=== PATIENT | female | born 1945 | race Caucasian/White ===

== ENCOUNTER → 2017-05-20 07:08 | Outpatient (CLI) | payer MEDICARE, SELFPAY ==
--- NOTE | 2017-05-20 07:16 | CT_ITS ---
STUDY: CT CHEST WITHOUT CONTRAST REASON FOR EXAM: Female, 72 years old. Pneumonia. Prior left mastectomy with chemotherapy and radiation therapy. RADIATION DOSAGE (If Supplied By Facility): CTDIvol = ( 15.76 ) mGy, DLP = ( 547.40 ) mGycm TECHNIQUE: Transaxial imaging was performed without the administration of intravenous contrast material. Multiplanar coronal and sagittal images were reformatted. Individualized dose optimization techniques were used for this CT. COMPARISON: Comparison is made with prior chest radiograph dated February 07, 2016. FINDINGS: The patient is status post left mastectomy. Left breast prosthesis. There is a 1.7 cm x 1.4 cm x 1.2 cm irregular inhomogeneous density along the anterior apical portion of the left lung. This most likely represents post radiation scarring. Subpleural blebs are seen anteriorly. There is also evidence of increased markings in the anterior aspect of the lingular segment of the left upper lobe most likely secondary to prior radiation therapy. Mild increased markings are seen in the left lower lobe. This may represent atelectasis and/or scarring. There is an 8.6 mm x 7.2 mm partially calcified nodule in the superior segment of the right lower lobe. This may represent a calcifying fibroadenoma. This is seen on axial image #64. There is no demonstrated pleural abnormality. Mild degree of anterior pericardial thickening. There are multiple small lymph nodes within the mediastinum, which are normal in size and morphology most compatible with reactive lymph hyperplasia. Normal hilar regions. Normal unenhanced pulmonary arteries. Normal aorta arch and descending thoracic aorta. There are multi-level degenerative changes of the thoracic spine. There is no demonstrated abnormality of the visualized upper abdomen. CT/Chest without Contrast IMPRESSION: Inhomogeneous changes seen in the left pulmonary apex suggestive of post radiation scarring. Mild increased markings are also seen in the anterior aspect of the lingula somewhat of the left upper lobe as well as in the left lower lobe. This may all be related to postradiation scarring. Subcentimeter partially calcified nodule in the superior segment of the right lower lobe most likely secondary to a calcifying fibroadenoma. Electronically Signed: Lonny Naidu MD at 12:46 EST Tel [phone], Service support ,
== END ==
PROVIDERS: Family Provider Internal Medicine; PCP Internal Medicine; Visit Provider Internal Medicine Critical Care Medicine
DX: R91.8 Other nonspecific abnormal finding of lung field (principal)
CPT/HCPCS: 71250

== ENCOUNTER 2017-07-15 08:42 | Day surgery (SDC) | payer MEDICARE, SELFPAY ==
--- NOTE | 2017-07-10 14:57 | EKG12_ITS ---
Test Reason : PREOP Blood Pressure : / mmHG Vent. Rate : 066 BPM Atrial Rate : 066 BPM P-R Int : 142 ms QRS Dur : 082 ms QT Int : 386 ms P-R-T Axes : 021 -14 025 degrees QTc Int : 404 ms Normal sinus rhythm Low voltage QRS Borderline ECG Confirmed by WASHINGTON SLATER ([id number]), state editor SAIRA FISHER ([id number]) on 07/11/2017 2:13:36 PM Referred By: Reji Alba Confirmed By:WASHINGTON SLATER
[2017-07-10 16:16] LABS: Hematocrit 37.9 % (37-47); Hemoglobin 12.6 g/dl (12.0-15.0); Mean Corp Hgb Conc 33.2 g/gl (32-36); Mean Corpuscular Hgb 31.3 pg (27.0-32.0); Mean Corpuscular Volume 94.3 fL (81-99); Mean Platelet Vol. 10.1 fl (6.2-12.0); Platelet Count 312 K/mm3 (150-450); RBC Distribution Width CV 14.2 % (11.6-14.6); RBC Distribution Width SD 46.3 fl (35.1-43.9); Red Blood Count 4.02 M/mm3 (4.2-5.4); Scan Indicated on CBC? Y/N NO; White Blood Count 7.3 K/mm3 (4.4-11.0)
[2017-07-10 16:18] LABS: International Normalized Ratio 0.9; Prothrombin Time (Protime)PT. 12.3 SECONDS (11.7-14.9)
[2017-07-10 16:19] LABS: Partial Thromboplast Time 24.9 Seconds (24.1-36.2)
[2017-07-10 16:23] LABS: Hemoglobin A1c 7.1 % (4.2-6.3)
[2017-07-10 16:31] LABS: ALB/GLOB Ratio 1.2 RATIO (0.9-2.4); AST(SGOT) 13 U/L (15-37); Alanine Aminotransfer ALT/SGPT 36 U/L (13-56); Alkaline Phosphatase 69 U/L (45-117); Anion Gap 8 (5-15); BUN 19 mg/dL (7-18); BUN/Creat Ratio 22.7 RATIO (10-20); Calcium,Total 9.4 mg/dL (8.5-10.1); Chloride 104 mmol/L (98-107); Creatinine, Serum 0.84 mg/dL (0.55-1.02); EST Glomerular Filtration Rate 71 mL/min (>60); Est Glom Filt Rate - Afr Amer 86 mL/min (>60); Globulin 3.4 g/dL (2.2-4.2); Glucose 114 mg/dL (74-106); Potassium 4.2 mmol/L (3.5-5.1); Protein, Total 7.4 g/dL (6.4-8.2); Sodium Level 143 mmol/L (136-145); Thyroid Stim Hormone (TSH) 0.86 uIU/mL (0.358-3.74)
--- NOTE | 2017-07-14 13:18 | PCM.HP.BLA ---
History and Physical Date of Admission: 07/15/17 Surgical History and Physical Kaitlyn Saha, a 72 year old female 2 0 1 0 2, presents for AP Repair on July 15, 2017 at 10:00. -- Bladder Prolapse; Vaginal Pressure -- Reports having periodic pressure and urge incontinence mainly in the am upon rising from bed. She had a prior hyst. She states she looked down into a mirror and there appeared to be something coming out of her vaginal canal. Prolapse which began May. Kaitlyn claims it started sudden and has been present weeks. It is located in the vagina. Severity is nagging; Associated signs and symptoms are itching, cramping. MEDICATIONS HISTORY: Current medications prescribed by our practice are: 1. Estrace 0.01% (0.1 mg/gram) vaginal cream, one half gram per vagina twice weekly at Patient is also takin. Bypap machine, nightly 2. Vitamin D3 1,000 unit capsule, One pill by mouth once a day 3. levothyroxine 50 mcg capsule, One pill by mouth once a day 4. metformin 500 mg tablet, One pill by mouth once a day 5. Flonase Allergy Relief 50 mcg/actuation nasal spray,suspension, 2 puffs daily 6. letrozole 2.5 mg tablet, daily 7. venlafaxine ER 75 mg capsule,extended release 24 hr, daily ALLERGIES: Sulfonamides, Facial edema, Sulfa (Sulfonamide Antibiotics), Edema and generalized Infections - none Illnesses - allergies, mvp,hypoglycemia and pancreatitis Accidents - no injuries of consequence Hospitalizations - see surgery Review of Systems: GENERAL - Denies fever, or chills SKIN - Denies skin changes EYES - Denies visual changes EARS - Denies difficulty hearing NOSE - Denies nasal congestion or bleeding MOUTH - Denies sore throat or difficulty swallowing NECK - Denies pain or swelling RESPIRATORY - Denies shortness of breath or wheezing CARDIOVASCULAR - Denies palpitations or chest pain GASTROINTESTINAL - Denies nausea, vomiting, diarrhea, constipation GENITOURINARY - Denies dysuria, frequency of urination, incontinence of urine MUSCULOSKELETAL - Denies joint or muscle pain NEUROLOGICAL - Denies localized numbness or weakness PSYCHIATRIC - Denies depression or anxiety ENDOCRINE - Denies heat or cold intolerance, weight loss or gain HEMATO-IMMUNOLOGIC - Denies excessive bleeding with cuts SOCIAL HISTORY: Alcohol Use - denies drinking Smoking - used to smoke but quit Diet - balanced Diet Lifestyle - moderate stress lifestyle and Exercise - active Seat Belt Use - always 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 Brother: hip replacement, Colon Cancer and Heart Disease. Sister: colonoscopy with polyps. MENSTRUAL HISTORY: LMP Known?- Prior Hysterectomy PAST PREGNANCIES: Total Pregnancies - 3; Full Term Pregnancies - 2; Premature - 0; Abortions, Induced - 0; Abortions, Spontaneous - 1; Ectopics - 0; Multiple Births - 0; Living Children - 2 SURGICAL HISTORY: 1. Stent placed into pancreatitis duct, 01/28 ; - 2. Hysterectomy, 1985 ; - adenomyosis 3. cholecystectomy, 1993 ; - 4. breast biopsy, 1994 ; - 5. cataract,rt eye-1996 ; - 6. L breast biopsy ; Dr. Raphael xiong - breast tumor 7. sinus surgery 2002 ; - 8. bile duct of liver unblocked ; - 9. 01/17/2017 mastectomy ; - breast cancer PHYSICAL EXAM BP- 164/70 Sitting, Right arm, regular cuff Weight- 170.85539 lbs Height- 62.50 inch BMI:30.66 CONSTITUTIONAL - NAD, well nourished, and well developed SKIN - No rash, lesions, or ulcers HEENT - Normocephalic, PERRLA, EOMI NECK - No nodes, no nuchal rigidity and thyroid normal size and texture LYMPH NODES - Palpation of lymph nodes in neck and groins within normal limits LUNGS - CTA x2 without wheezes, crackles or rales CARDIAC - Regular rate and rhythm without rubs, murmurs, or gallops BREAST - No dominant masses, no tenderness, no axillary adenopathy, no nipple discharge, no skin changes ABDOMEN - Without hepatosplenomegaly, distention, masses, rebound, or guarding; normal bowel sounds; no hernias EXTREMITIES - No edema or calf tenderness NEUROLOGICAL - Cranial nerves II-XII grossly intact PSYCHIATRIC - A and O to time, place, person, mood and affect External Genital Vagina - non-tender without lesions Urethra/Urethral Meatus - non-tender Bladder - non-tender Vagina - loss of rugae, large cystocele and moderate rectocele Cervix - Prior hysterectomy-well healed vaginal cuff Uterus - prior hysterectomy-absent Adnexa - clear without masses or tenderness Pap - deferred ASSESSMENT/PLAN: 1. Cystocele Midline and Rectocele Discussed options for treatment including expectant management, pessary use, or proceeding with AP Repair. Desires we proceed with surgery. Discussed RBAs and all questions answered.
[2017-07-15] VITALS (11 sets, daily range): BP systolic 120–168; BP diastolic 55–79; PULSE 60–86; RESP 14–18; TEMP 36.4–37; O2SAT 94–99; BMI 30.9; BMI 31.8
[2017-07-15 09:36] LABS: Bedside Glucose 139 mg/dL (70-110)
--- NOTE | 2017-07-15 10:56 | PCM.OP.BLANK ---
Operative Report Date of Procedure: 07/15/17 Surgeon: Reji Alba MD, [facility] Ancillary: LORENE Rubi; LORENE Devine Anesthesia: Lacey Alba MD Type of anesthesia: General endotracheal Procedure: AP repair Findings: Cystocele which protruded 3 centimeters outside of the introitus. Rectocele which protruded to the introitus after anterior repair. Indications: This is a 72-year-old patient who is been having problems with vaginal pressure and prolapse. Conservative measures have not been helpful. Given this the patient desires that we proceed the above procedure. She has been counseled regarding the risk and indications of this procedure including the possibility of bleeding, infection, and injury to surrounding structures such as bowel bladder. All questions were answered. Procedure: Patient was taken to the operating room where after induction of general anesthesia she was placed in the dorsal lithotomy position and prepped and draped in the usual sterile fashion. The bladder was drained of approximately 50 cc of clear yellow urine with red rubber catheter. Anterior vaginal mucosa was undermined and divided and then imbricated toward the midline with interrupted 0 Vicryl sutures. Vaginal mucosa was trimmed and then closed with interrupted 2-0 chromic suture. Vaginal cuff was then closed front to back with interrupted [id number]-gr-svbbs 0 Vicryl suture. Hemostasis was noted. Attention was turned toward the posterior repair portion of the procedure. Remnants of the hymenal ring were grasped with Allises and a V-shaped incision was made in the perineum. Rectovaginal mucosa was then undermined divided and then imbricated toward the midline with interrupted 0 Vicryl suture. Vaginal mucosa was trimmed and then closed with running locked 2-0 chromic suture. Remnants of the bulbocavernosus muscles were identified and brought toward the midline with a single oiqfuq-pq-gixbr 0 Vicryl suture and perineum was closed in the usual fashion with running and subcuticular, and tubcza-jq-tltij 2-0 chromic suture. Hemostasis was noted. Ocampo catheter was placed and clear yellow urine was noted. Vagina was packed with iodoform tape. Patient tolerated the procedure well was taken to recovery room in satisfactory condition; sponge instrument and needle counts were all reportedly correct. Estimated blood loss for the case was <100 cc. Cefotan 2 g IV was given prior to beginning the operative procedure. There were no apparent complications of the surgery. Specimen to pathology was uterus and vaginal mucosa.
--- NOTE | 2017-07-15 11:03 | OP.PCM_ITS ---
Operative Report Date of Procedure: 07/15/17 Surgeon: Reji Alba MD, [facility] Cardiac Surgeon: LORENE Rubi; LORENE Devine Anesthesia: Lacey Alba MD Type of anesthesia: General endotracheal Procedure: AP repair Findings: Cystocele which protruded 3 centimeters outside of the introitus. Rectocele which protruded to the introitus after anterior repair. Indications: This is a 72-year-old patient who is been having problems with vaginal pressure and prolapse. Conservative measures have not been helpful. Given this the patient desires that we proceed the above procedure. She has been counseled regarding the risk and indications of this procedure including the possibility of bleeding, infection, and injury to surrounding structures such as bowel bladder. All questions were answered. Procedure: Patient was taken to the operating room where after induction of general anesthesia she was placed in the dorsal lithotomy position and prepped and draped in the usual sterile fashion. The bladder was drained of approximately 50 cc of clear yellow urine with red rubber catheter. Anterior vaginal mucosa was undermined and divided and then imbricated toward the midline with interrupted 0 Vicryl sutures. Vaginal mucosa was trimmed and then closed with interrupted 2-0 chromic suture. Vaginal cuff was then closed front to back with interrupted qkkzam-ql-onhga 0 Vicryl suture. Hemostasis was noted. Attention was turned toward the posterior repair portion of the procedure. Remnants of the hymenal ring were grasped with Allises and a V-shaped incision was made in the perineum. Rectovaginal mucosa was then undermined divided and then imbricated toward the midline with interrupted 0 Vicryl suture. Vaginal mucosa was trimmed and then closed with running locked 2-0 chromic suture. Remnants of the bulbocavernosus muscles were identified and brought toward the midline with a single rqjtqh-oo-shgrg 0 Vicryl suture and perineum was closed in the usual fashion with running and subcuticular, and wnokpb-cs-hmkwq 2-0 chromic suture. Hemostasis was noted. Ocampo catheter was placed and clear yellow urine was noted. Vagina was packed with iodoform tape. Patient tolerated the procedure well was taken to recovery room in satisfactory condition; sponge instrument and needle counts were all reportedly correct. Estimated blood loss for the case was <100 cc. Cefotan 2 g IV was given prior to beginning the operative procedure. There were no apparent complications of the surgery. Specimen to pathology was uterus and vaginal mucosa.
--- NOTE | 2017-07-15 11:03 | PCM.DC.VHY ---
Discharge Diet: No Restrictions Discharge Activity: Return to Normal Activity, May Not Drive - while taking narcotic pain medications., May Shower, May Take a Tub Bath May resume sexual activity in: 6-8 weeks Call your doctor if your incision/area has: Continuous Slow Oozing, Sudden Increased Bleeding, Increased Pain/ Swelling, Increased Redness, Foul Smelling Discharge Call your doctor if you observe: Fever of 101 or Higher, Inability to urinate, Inability to have a bowel movement, Using more than one pad per hour Allergies/Adverse Reactions: Allergies meperidine [From Demerol] Allergy (Verified 07/08/17 10:58) Unknown UNKNOWN TO PT Sulfa (Sulfonamide Antibiotics) Allergy (Verified 07/08/17 10:58) Swelling TREES Allergy (Uncoded 07/08/17 10:58) Other Medications to take at Discharge Calcium Carb/Vitamin D [Os-Magan 500MG + D] 1 tablet PO DAILY@0800 02/03/16 Cholecalciferol (VIT D3) [Vitamin D] 1,000 unit PO DAILY 02/03/16 Cyanocobalamin (Vitamin B-12) [Vitamin B-12] 1,000 mcg PO DAILY 02/03/16 Levothyroxine [Synthroid] 50 mcg PO MOTUWETHFRSA 02/03/16 Losartan Potassium [Cozaar] 50 mg PO DAILY 02/03/16 Metformin HCl [Metformin HCl ER] 1,000 mg PO BID 02/03/16 Mometasone/Formoterol [Dulera 200 Mcg/5 Mcg Inhaler] 1 puff IH DAILY 02/03/16 Letrozole [Femara] 2.5 mg PO QHS 07/08/17 Levothyroxine Sodium [Synthroid] 100 mcg PO HERNANDEZ 07/08/17 Docusate Sodium [Colace] 100 mg PO BID PRN PRN #60 cap 07/15/17 Oxycodone [Oxyir] 5 mg PO Q6H PRN PRN 7 Days #10 tab 07/15/17 The following prescriptions were given: Oxycodone [Oxyir] 5 mg PO Q6H PRN PRN 7 Days #10 tab PRN Reason: Severe Pain (6-01/01) Docusate Sodium [Colace] 100 mg PO BID PRN PRN #60 cap PRN Reason: Constipation Primary Care Physician: Shelbi Hill [Primary Care Provider] - Please Follow Up With: Reji Alba MD When: 2-3 weeks
[2017-07-15 12:56] LABS: Bedside Glucose 200 mg/dL (70-110)
[2017-07-15] MEDS: Lactated Ringers 1,000 ML 125 ML IV ×2 (13:52→18:30)
[2017-07-15] MEDS: Acetaminophen 500 MG Tablet 1000 MG PO ×2 (14:48→22:04)
[2017-07-15] MEDS: oxyCODONE 5 MG Tablet PO (16:42)
[2017-07-15] MEDS: Docusate Sodium 100 MG Capsule PO (16:42)
[2017-07-15] MEDS: Enoxaparin 30 MG/0.3 ML Syringe SC (18:13)
[2017-07-15] MEDS: metFORMIN HCl 1,000 MG Tablet 1000 MG PO (18:13)
[2017-07-15] MEDS: Ketorolac 15 MG/ML Vial IV (18:14)
[2017-07-16] MEDS: Ketorolac 15 MG/ML Vial IV ×3 (00:26→13:28)
[2017-07-16 00:29] VITALS: BP 119/55; PULSE 52; RESP 16; TEMP 36.9; O2SAT 97
[2017-07-16] MEDS: Levothyroxine 50 MCG Tablet PO (06:07)
[2017-07-16] MEDS: Acetaminophen 500 MG Tablet 1000 MG PO ×2 (06:07→13:31)
[2017-07-16] MEDS: Lactated Ringers 1,000 ML 125 ML IV (06:08)
[2017-07-16 06:48] LABS: Hematocrit 32.3 % (37-47); Hemoglobin 10.5 g/dl (12.0-15.0); Mean Corp Hgb Conc 32.5 g/gl (32-36); Mean Corpuscular Hgb 31.3 pg (27.0-32.0); Mean Corpuscular Volume 96.1 fL (81-99); Mean Platelet Vol. 10.4 fl (6.2-12.0); Platelet Count 213 K/mm3 (150-450); RBC Distribution Width CV 13.8 % (11.6-14.6); RBC Distribution Width SD 45.7 fl (35.1-43.9); Red Blood Count 3.36 M/mm3 (4.2-5.4); White Blood Count 6.2 K/mm3 (4.4-11.0)
[2017-07-16 06:50] LABS: Scan Indicated on CBC? Y/N NO
[2017-07-16 07:05] VITALS: O2SAT 98
[2017-07-16 07:05] LABS: Creatinine, Serum 0.82 mg/dL (0.55-1.02); EST Glomerular Filtration Rate 73 mL/min (>60); Est Glom Filt Rate - Afr Amer 88 mL/min (>60); Estimated Creatinine Clearance 49.05 ml/min
[2017-07-16] MEDS: metFORMIN HCl 1,000 MG Tablet 1000 MG PO (08:13)
[2017-07-16 08:22] VITALS: BP 131/62; PULSE 53; RESP 16; TEMP 36.6; O2SAT 95
[2017-07-16] MEDS: Losartan Potassium 50 MG Tablet PO (08:25)
[2017-07-16] MEDS: Docusate Sodium 100 MG Capsule PO (08:27)
--- NOTE | 2017-07-16 08:44 | PCM.PN.OB ---
Subjective: Patient without complaints. Tolerating diet well. Able to void on her own. Minimal vaginal bleeding. - Physical Exam Vital Signs AF, VSS Temp Pulse Resp BP Pulse Ox 97.8 F 53 L 16 131/62 H 95 07/16/17 08:22 07/16/17 08:22 07/16/17 08:22 07/16/17 08:22 07/16/17 08:22 Oxygen Flow Rate (L/min) 2 Oxygen Delivery Method Room Air Weight: 173 lb 15.115 oz Body Mass Index (BMI) 31.8 Finger Stick Blood Glucose 200 Intake and Output for Last 24 Hours 07/14/17 07/15/17 07/16/17 23:59 23:59 23:59 Intake Total 1798 / 1798 1505 / 1505 Output Total 1025 / 1025 1175 / 1175 Balance 773 / 773 330 / 330 Laboratory Tests Past 24 Hrs 07/16/17 07/16/17 06:02 06:02 WBC 6.2 RBC 3.36 L Hgb 10.5 L Hct 32.3 L MCV 96.1 MCH 31.3 MCHC 32.5 RDW 13.8 RDW Differential 45.7 H Plt Count 213 MPV 10.4 Creatinine 0.82 Estim Creat Clear Calc 49.05 Est GFR (MDRD) Af Amer 88 Est GFR (MDRD) Non-Af 73 POC Glucose 07/15/17 07/15/17 12:52 09:13 POC Glucose 200 H 139 H Vaginal pack removed with minimal bleeding noted. Good urine output. Hemoglobin and creatinine okay. Medical Necessity - Tobacco Use Smoking Status: Former smoker Assessment/Plan Doing well. Will release to home with routine instructions.
--- NOTE | 2017-07-16 10:35 | VAGMU_PTH ---
PATIENT: GEORGE JASSO LOC: [facility] [place] U#:[id number] AGE/SX: 72/F ROOM: RE07/15/[address]: Dr. Reji Alba MD : 1945 BED: DIS: 07/16/2017 SPEC #: [id number] RECD: 07/16/17 10:45 STATUS: EMANUEL JAMES #: [id number] GOLD: 07/16/17 10:[address]: Reji Alba DEPT: SURGICAL PATHOLOGY RECD BY: Almas Macias ENTERED: 07/16/17 12:23 SP TYPE: VAG MUCOSA OTHR DR: Dr. Shelbi Hill MD Tissues: Vagina, NOS Procedures: Surgery Specimen Level II HEADER OPERATION: Repair, anterior and posterior PRE-OP DIAGNOSIS: Cystocele midline and rectocele TISSUE SUBMITTED: Vaginal mucosa MICROSCOPIC DIAGNOSIS Vaginal mucosa, anterior and posterior repair: Minimal chronic inflammation. No evidence of dysplasia. AM:gurdeep 4/25/18 MICROSCOPIC DESCRIPTION Slides are reviewed. GROSS DESCRIPTION Received in fixative is one container labeled with the patient's name and designated vaginal mucosa. The specimen consists of multiple irregular glistening fragments of rosa mucosa with attached hemorrhagic submucosal tissue that in aggregate measure 6.5 x 4 x 0.5 cm. No mucosal mass lesions are identified. Customer Acquisition Manager sections are submitted in two cassettes. / AM:gurdeep 07/16/17 TC:5 CPT: 23651
[2017-07-16 13:25] VITALS: BP 151/81; PULSE 70; RESP 16; TEMP 37.2; O2SAT 98
[2017-07-16] MEDS: 0.9% NaCl Peripheral Flush Adult/Peds IV (13:31)
== END 2017-07-16 14:30 | disposition home or self-care (01) ==
LOC: SDC 08:42 → AC 08:43 → MS2 13:40
PROVIDERS: Family Provider Internal Medicine; PCP Internal Medicine; Visit Provider Obstetrics & Gynecology
PROC: (CPT 57260; principal; 2017-07-15 10:20)
DX: N81.10 Cystocele, unspecified (principal); N81.6 Rectocele; Z87.891 Personal history of nicotine dependence; Z90.710 Acquired absence of both cervix and uterus; I10 Essential (primary) hypertension; J45.909 Unspecified asthma, uncomplicated; K59.00 Constipation, unspecified; E78.00 Pure hypercholesterolemia, unspecified; Z85.3 Personal history of malignant neoplasm of breast; E11.9 Type 2 diabetes mellitus without complications; Z90.49 Acquired absence of other specified parts of digestive tract; Z90.10 Acquired absence of unspecified breast and nipple; I34.1 Nonrheumatic mitral (valve) prolapse
CPT/HCPCS: 57260; 36415; 80053; 82565; 82962; 83036; 84443; 85027; 85610; 85730; 86850; 86900; 88302; 88304; 93005; 94762; J7120; A4216; J2405

== ENCOUNTER → 2019-12-14 16:54 | Outpatient (CLI) | payer MEDICARE, SELFPAY ==
[2017-07-15 14:18] VITALS: BMI 31.8
== END ==
PROVIDERS: PCP Internal Medicine; Visit Provider Obstetrics & Gynecology
DX: N39.0 Urinary tract infection, site not specified (principal)
CPT/HCPCS: 87077; 87086; 87088; 87186

== ENCOUNTER → 2019-12-18 09:15 | Outpatient (CLI) | payer MEDICARE, SELFPAY ==
[2017-07-15 14:18] VITALS: BMI 31.8
--- NOTE | 2019-12-18 | ASPOS_PTH ---
PATIENT: GEORGE JASSO LOC: [facility] U#:[id number] AGE/SX: 80/F ROOM: RE12/18/[address]: Dr. Jordon David MD : 1945 BED: DIS: SPEC #: [id number] RECD: 12/18/19 10:00 STATUS: EMANUEL ERIKA #: [id number] GOLD: 12/18/19 00:[address]: Jrodon David DEPT: CYTOLOGY RECD BY: Soraya Arndt ENTERED: 12/18/19 11:56 SP TYPE: ASP HERE OTHR DR: Dr. Shelbi Hill MD Tissues: Neck, NOS Procedures: Surgery Specimen Level IV Cytology Other Fine Needle Asp on Site HEADER OPERATION: Fine needle aspiration left neck mass PRE-OP DIAGNOSIS: Left neck mass TISSUE SUBMITTED: Fine needle aspiration left neck mass DIAGNOSIS CYTOLOGY Fine needle aspiration, left neck mass (smears and cell block): Benign mature adipose tissue and skeletal muscle. See comment. AM:gurdeep 12/21/19 COMMENT The specimen is evaluated at the time of FNA by Dr. Rosas. Immediate Evaluation = Benign skeletal muscle and adipose tissue. No evidence of malignancy. There is no evidence of malignancy. An intramuscular lipoma is a possibility. Clinical correlation is suggested. CYTOLOGY STUDY Slides are reviewed. CYTOLOGY GROSS Received is 0.1 ml of reddish material labeled with the patient's name, and designated left neck mass. Seven imprints and one pap are made from the submitted fluid and the rest is added to CytoLyt for cell block preparation. Submitted for cytology study. / AM:gurdeep 12/18/19 TC:5 CPT: 10001, 23061, 98172, 54670
== END ==
PROVIDERS: PCP Internal Medicine; Referring Provider Otolaryngology Otolaryngology/Facial Plastic Surgery; Visit Provider Otolaryngology Otolaryngology/Facial Plastic Surgery
DX: R22.1 Localized swelling, mass and lump, neck (principal)
CPT/HCPCS: 10021; 88161; 88305